=== PATIENT | female | born 1930 | race Caucasian/White ===

== ENCOUNTER 2016-12-26 14:13 | Emergency (ER) | payer MEDICARE ==
[2016-12-26 14:16] VITALS: BP 129/92; PULSE 85; RESP 16; TEMP 97.5; O2SAT 94
--- NOTE | 2016-12-26 15:43 | RADRPT ---
EXAM DATE/TIME: 12/26/2016 15:21 [facility] COMPARISON: No previous studies available for comparison. INDICATIONS : Short of breath, chest discomfort MEDICAL HISTORY : None. SURGICAL HISTORY : None. ENCOUNTER: Initial ACUITY: 1 day PAIN SCORE: 4/10 LOCATION: Bilateral chest FINDINGS: Frontal and lateral views of the chest demonstrate a normal-sized cardiac silhouette with a tortuous descending thoracic aorta. Background lung changes are suggestive of obstructive airways disease. No effusion, consolidation, or pneumothorax is identified. Bones and soft tissues demonstrate no acute f inding. CONCLUSION: No acute cardiopulmonary abnormality is identified. Background lung findings are suggestive of obstru ctive airways disease/emphysema. Leroy Marino MD on December 26, 2016 at 15:40 Board Certified Radiologist. This report was verified electronically.
[2016-12-26 15:45] LABS: HEMATOCRIT 41.8 % (35.0-46.0); MEAN CELL VOLUME 97.4 FL (80.0-100.0); MEAN CORPUSCULAR HEMOGLOBIN 33.4 PG (27.0-34.0); MEAN CORPUSCULAR HGB CONC 34.3 % (32.0-36.0); PLATELET COUNT 289 TH/MM3 (150-450); RED BLOOD COUNT 4.29 MIL/MM3 (4.00-5.30); RED CELL DISTRIBUTION WIDTH 12.7 % (11.6-17.2); WHITE BLOOD COUNT 6.6 TH/MM3 (4.0-11.0)
[2016-12-26 15:46] LABS: HEMO FLAGS AUTO DIFF
[2016-12-26 15:52] LABS: ANION GAP 7 MEQ/L (5-15); BICARBONATE 23.6 MEQ/L (21.0-32.0); BLOOD UREA NITROGEN 20 MG/DL (7-18); CHLORIDE 108 MEQ/L (98-107); GLOMERULAR FILTRATION RATE 64 ML/MIN (>89); MAGNESIUM 1.7 MG/DL (1.5-2.5); SODIUM (NA) 139 MEQ/L (136-145)
[2016-12-26 15:58] LABS: CREATINE KINASE 83 U/L (26-192)
[2016-12-26 16:11] LABS: MYELOCYTES 1 % (0-0); NEUTROPHIL # MANUAL DIFF 5.5 TH/MM3 (1.8-7.7); POLYS (SEG NEUTROPHILS) 83 % (16-70); WBC DIFF SAMPLE 100
[2016-12-26 16:15] LABS: PLATELET ESTIMATE SMEAR NORMAL (NORMAL); PLATELET MORPHOLOGY NORMAL (NORMAL); SCAN/DIFF FINAL DIFF MANUAL
[2016-12-26 18:54] VITALS: BP 169/77; PULSE 97; RESP 18; O2SAT 97
--- NOTE | 2016-12-26 20:01 | PD ---
HPI Chief Complaint: Respiratory Symptoms Time Seen by Provider: 19:02 Travel History International Travel<30 days: No Contact w/Intl Traveler<30days: No Traveled to known affect area: No History of Present Illness HPI 86-year-old female with recent diagnosis of CHF presents to the ED for evaluation of 7-10 day history of intermittent right eye pain, unassociated nausea and "white urine." The patient denies headache, blurred vision, dizziness, fever, chills, chest pain, palpitations, shortness of breath, cough, abdominal pain, changes in bowel habits, dysuria, back pain, lower extremity edema. She states that she was recently discharged from [facility]. She takes no daily medications. Her primary care is in [place]. She denies eye pain on presentation. She has an appointment with her cook short order tomorrow. Last eye exam in November. She uses oxygen at home at night. [facility] Past Medical History Medical History: Denies Significant Hx Tetanus Vaccination: < 5 Years Past Surgical History Hysterectomy: Yes (part) Social History Alcohol Use: No Tobacco Use: No Substance Use: No Allergies-Medications (Allergen,Severity, Reaction): Coded Allergies: No Known Allergies (Unverified , 12/26/16) Reported Meds & Prescriptions Reported Meds & Active Scripts Active No Active Prescriptions or Reported Medications Review of Systems Except as stated in HPI: all other systems reviewed are Neg Physical Exam Narrative GENERAL: Well-nourished, well-developed white female in no acute distress. SKIN: Focused skin assessment warm/dry. HEAD: Normocephalic. EYES: No scleral icterus. No injection or drainage. PERRLA. EOMI. FUNDUSCOPIC EXAM: The bilateral funduscopic exam appeared within normal limits without papilledema, A-V nicking or blood associated with the optic disc. INTRAOCULAR PRESSURE: OD: 88, 84 OS: deferred 2/2 patient's discomfort NECK: Supple, trachea midline. No JVD or lymphadenopathy. CARDIOVASCULAR: Regular rate and rhythm without murmurs, gallops, or rubs. RESPIRATORY: Breath sounds clear and equal bilaterally. No accessory muscle use. GASTROINTESTINAL: Abdomen soft, non-tender, nondistended. No Soto's sign. No palpable masses. Active bowel sounds. MUSCULOSKELETAL: No cyanosis, or edema. NEUROLOGICAL: Awake and alert. Cranial nerves II through XII intact. Motor and sensory grossly within normal limits. Five out of 5 muscle strength in all muscle groups. Normal speech. BACK: Nontender without obvious deformity. No CVA tenderness. Data Data Last Documented VS Vital Signs Date Time Temp Pulse Resp B/P (MAP) Pulse Ox O2 Delivery O2 Flow Rate FiO2 12/27/16 01:06 12/27/16 00:57 74 16 97 2.00 12/26/16 23:01 Nasal Cannula 12/26/16 14: 97.5 Orders Orders Electrocardiogram (12/26/16 14:31) Basic Metabolic Panel (Bmp) (12/26/16 14:31) B-Type Natriuretic Peptide (12/26/16 14:31) Ckmb (Isoenzyme) Profile (12/26/16 14:31) Complete Blood Count With Diff (12/26/16 14:31) Magnesium (Mg) (12/26/16 14:31) Prothrombin Time / Inr (Pt) (12/26/16 14:31) Act Partial Throm Time (Ptt) (12/26/16 14:31) Troponin I (12/26/16 14:31) Chest, Pa & Lat (12/26/16 14:31) Urinalysis - C+S If Indicated (12/26/16 14:31) Ecg Monitoring (12/26/16 20:14) Oximetry (12/26/16 20:14) Ct Brain W/O Iv Contrast(Rout) (12/26/16 21:13) Ct Facial Bones W Iv Contrast (12/26/16 ) Tylenol (Acetaminophen) (12/26/16 21:13) Proparacaine 0.5% Opth Soln (Alcaine 0.5 (12/26/16 21:15) Iv Access Insert/Monitor (12/26/16 21:21) Morphine Inj (Morphine Inj) (12/26/16 21:30) Iohexol 350 Inj (Omnipaque 350 Inj) (12/26/16 22:29) Metoclopramide Inj (Reglan Inj) (12/26/16 22:30) Diphenhydramine Inj (Benadryl Inj) (12/26/16 22:30) Morphine Inj (Morphine Inj) (12/26/16 22:45) Ketorolac Inj (Toradol Inj) (12/26/16 23:15) Morphine Inj (Morphine Inj) (12/27/16 00:30) Ed Discharge Order (12/27/16 00:33) Alprazolam (Xanax) (12/27/16 00:45) Labs Laboratory Tests Test 12/26/16 15:15 12/26/16 21:45 12/26/16 23:10 12/26/16 23:50 White Blood Count 6.6 TH/MM3 Red Blood Count 4.29 MIL/MM3 Hemoglobin 14.3 GM/DL Hematocrit 41.8 % Mean Corpuscular Volume 97.4 FL Mean Corpuscular Hemoglobin 33.4 PG Mean Corpuscular Hemoglobin Concent 34.3 % Red Cell Distribution Width 12.7 % Platelet Count 289 TH/MM3 Mean Platelet Volume 8.3 FL CBC Comment AUTO DIFF Differential Total Cells Counted 100 Neutrophils % (Manual) 83 % Lymphocytes % 14 % Monocytes % 2 % Neutrophils # (Manual) 5.5 TH/MM3 Myelocytes 1 % Differential Comment FINAL DIFF MANUAL Platelet Estimate NORMAL Platelet Morphology Comment NORMAL Blood Urea Nitrogen 20 MG/DL Creatinine 0.85 MG/DL Random Glucose 115 MG/DL Calcium Level 9.3 MG/DL Magnesium Level 1.7 MG/DL Sodium Level 139 MEQ/L Potassium Level 4.0 MEQ/L Chloride Level 108 MEQ/L Carbon Dioxide Level 23.6 MEQ/L Anion Gap 7 MEQ/L Estimat Glomerular Filtration Rate 64 ML/MIN Total Creatine Kinase 83 U/L Troponin I LESS THAN 0.02 NG/ML B-Type Natriuretic Peptide 111 PG/ML Acetaminophen Level LESS THAN 2.0 MCG/ML Prothrombin Time 11.4 SEC Prothromb Time International Ratio 1.0 RATIO Activated Partial Thromboplast Time 25.9 SEC Urine Color YELLOW Urine Turbidity CLEAR Urine pH 5.5 Urine Specific [place] 1.050 Urine Protein TRACE mg/dL Urine Glucose (UA) NEG mg/dL Urine Ketones TRACE mg/dL Urine Occult Blood NEG Urine Nitrite NEG Urine Bilirubin NEG Urine Urobilinogen LESS THAN 2.0 MG/DL Urine Leukocyte Esterase NEG Urine RBC 1 /hpf Urine WBC 3 /hpf Urine Squamous Epithelial Cells 2 /hpf Urine Bacteria RARE /hpf Urine Hyaline Casts 3 /lpf Urine Mucus FEW /lpf Microscopic Urinalysis Comment CULT NOT INDICATED MDM Medical Decision Making Medical Screen Exam Complete: Yes Emergency Medical Condition: Yes Differential Diagnosis UTI versus CHF exacerbation versus PNA versus ocular migraine versus cluster headache versus other Narrative Course 86-year-old female with recent diagnosis of CHF on oxygen when necessary at night presents to the ED for evaluation of 7-10 day history of intermittent right eye pain, unassociated nausea and "white urine." The patient denies headache, blurred vision, dizziness, fever, chills, chest pain, palpitations, shortness of breath, cough, abdominal pain, changes in bowel habits, dysuria, back pain, lower extremity edema. She takes no daily medications. PCP in [place]. She denies eye pain on presentation. She has an appointment with her cook short order tomorrow. Last eye exam in November. Vitals reviewed. Patient' s afebrile, hypertensive on presentation. Physical exam reveals a pleasant white female in no acute distress. PERRLA. EOMI. Funduscopic exam unremarkable. IOP OD 88, 84, measured on 2 different James-Pen's. I doubt the validity of these readings. Patient was very anxious, moving the eye constantly , blinking repeatedly. I deferred pressures in the left eye secondary to these difficulties. No focal neuro deficits. Chest CTAB. Abdomen soft, nontender. No CVA tenderness. No lower extremity edema. Workup was initiated in the triage area. CBC: No leukocytosis or anemia CMP: No concerning abnormalities CXR: Background findings suspicious for COPD, no acute findings per radiology read. EKG rate 63, ectopic atrial rhythm. SC interval 154, QRS 80, QTC 380 ms. Normal axis. No acute ST changes. Reviewed by Dr. Gibbs. Troponin: Negative 1 BNP 111 UA: During the course of evaluation the patient began to complain of intense pain behind the right eye. I reevaluated the patient and no tearing was noted. Visual acuity 20/30 OD, 20/40 OS. Patient was administered 2 mg morphine IV. On return from CT she complains of continued pains. She was ordered 2 additional milligrams of morphine, IV Reglan, IV Benadryl, IV Toradol. CT brain: Normal per radiology read CT facial bones: Normal for radiology read. On recheck the patient is sleeping. She reports improvement of her headache. UA is pending. Patient is signed out to Dr. Miguel at end of shift. Please see her note for disposition. Diagnosis Primary Impression: Retrobulbar headache Referrals: Commercial Front Load Driver Patient Instructions: Acute Headache (ED), General Instructions Additional Instructions: Rest, hydrate. Return to normal, gentle activities as tolerated. Follow-up with the cook short order as planned. Return to the ED for worsening symptoms or any urgent or emergent medical condition. Scripts No Active Prescriptions or Reported Meds Disposition: 01 DISCHARGE HOME Condition: Stable Erna Cabrales Dec 26, 2016 20:01
[2016-12-26] MEDS ORDERED: PROPARACAINE HCL 0.5% OPHT SOLN 15 ML BTL EACH EYE ONE (21:15)
[2016-12-26 21:24] VITALS: BP 133/89; PULSE 95; RESP 18; O2SAT 95
--- NOTE | 2016-12-26 21:29 | EKG ---
Date Performed: 12/26/2016 Time Performed: 16:52:17 PTAGE: 86 years EKG: Sinus rhythm SUSPEC LEAD REVERSAL NO PREVIOUS TRACING DOCTOR: Tod Schilling Interpretating Date/Time 12/26/2016 21:28:35
[2016-12-26] MEDS ORDERED: MORPHINE SULFATE 2 MG/ML INJ IV PUSH ONE ×2 (21:30→22:45)
[2016-12-26] MEDS ORDERED: IOHEXOL 350 MG/ML 10 ML VIAL (for RAD DIAG) IVCONTRAST ONE (22:29)
[2016-12-26] MEDS ORDERED: diphenhydrAMINE HCL 50 MG/ML VIAL IV PUSH ONE (22:30)
[2016-12-26] MEDS ORDERED: METOCLOPRAMIDE HCL 10 MG/2 ML VIAL IV PUSH ONE (22:30)
--- NOTE | 2016-12-26 22:40 | RADRPT ---
EXAM DATE/TIME: 12/26/2016 22:09 [facility] COMPARISON: No previous studies available for comparison. INDICATIONS : Cephalgia. RADIATION DOSE: 34.19 CTDIvol (mGy) MEDICAL HISTORY : None SURGICAL HISTORY : None. ENCOUNTER: Initial ACUITY: 3 weeks PAIN SCALE: 5/10 LOCATION: cranial TECHNIQUE: Multiple contiguous axial images were obtained of the head. Using automated exposure control and adj ustment of the mA and/or kV according to patient size, radiation dose was kept as low as reasonably a chievable to obtain optimal diagnostic quality images. DICOM format image data is available electro nically for review and comparison. FINDINGS: CEREBRUM: The ventricles are normal for age. No evidence of midline shift, mass lesion, hemorrhage or acute in farction. No extra-axial fluid collections are seen. POSTERIOR FOSSA: The cerebellum and brainstem are intact. The 4th ventricle is midline. The cerebellopontine angle i s unremarkable. EXTRACRANIAL: The visualized portion of the orbits is intact. SKULL: The calvaria is intact. No evidence of skull fracture. CONCLUSION: Normal examination. Evangelista Fink MD on December 26, 2016 at 22:38 Board Certified Radiologist. This report was verified electronically.
--- NOTE | 2016-12-26 22:43 | RADRPT ---
EXAM DATE/TIME: 12/26/2016 22:09 [facility] COMPARISON: No previous studies available for comparison. INDICATIONS : Right eye pain, no known injury. IV CONTRAST: 71 cc Omnipaque 350 (iohexol) IV RADIATION DOSE: 42.09 CTDIvol (mGy) MEDICAL HISTORY : None SURGICAL HISTORY : None. ENCOUNTER: Initial ACUITY: 3 weeks PAIN SCALE: 6/10 LOCATION: Right orbit. TECHNIQUE: Volumetric scanning of the facial bones was performed. Using automated exposure control and adjustme nt of the mA and/or kV according to patient size, radiation dose was kept as low as reasonably achiev able to obtain optimal diagnostic quality images. DICOM format image data is available electronicall y for review and comparison. FINDINGS: ORBITS: The orbital and infraorbital osseous structures are intact. The retroconal structures have a normal configuration. No radiopaque foreign bodies are seen. NASAL BONE: The nasal bone and maxillary spine are intact ZYGOMATIC ARCHES: Symmetric without evidence of fracture. SINUSES: The maxillary, ethmoid and frontal sinuses are intact. No air-fluid levels seen. NASAL CAVITY: The nasal septum is intact and midline. The lacrimal ducts are intact. SOFT TISSUES: No radiopaque foreign bodies seen. No soft-tissue swelling is seen. INTRACRANIAL: No intracranial air seen. CRIBIFORM PLATE: Grossly intact. CONCLUSION: Normal examination. Evangelista Fink MD on December 26, 2016 at 22:41 Board Certified Radiologist. This report was verified electronically.
[2016-12-26 23:00] VITALS: RESP 12; O2SAT 86
[2016-12-26 23:01] VITALS: O2SAT 97
[2016-12-26] MEDS ORDERED: KETOROLAC TROMETHAMINE 30 MG/ML (IVP) VIAL IV PUSH ONE (23:15)
[2016-12-26 23:43] LABS: APTT (PATIENT) 25.9 SEC (24.3-30.1); PROTHROMBIN TIME - PATIENT 11.4 SEC (9.8-11.6)
[2016-12-27 00:16] LABS: BACTERIA, URINE RARE /hpf; BLOOD, URINE NEG (NEG); COMMENT (UR) CULT NOT INDICATED; CULTURE IF INDICATED CULT NOT INDICATED; GLUCOSE,URINE NEG (NEG); HYALINE CAST, URINE 3 /lpf (RARE); KETONE, URINE TRACE mg/dL (NEG); MUCUS URINE FEW /lpf (OCC); NITRITE,URINE NEG (NEG); PH, URINE 5.5 (5.0-8.5); SQUAMOUS EPITHELIAL CELL URINE 2 /hpf (0-5); URINE COLOR YELLOW (YELLW/STRAW)
[2016-12-27] MEDS ORDERED: MORPHINE SULFATE 2 MG/ML INJ IV PUSH ONE (00:30)
--- NOTE | 2016-12-27 00:37 | PD ---
Physical Exam Date Seen by Provider: Dec 27, 2016 Time Seen by Provider: 00:34 Narrative 86-year-old female came to the emergency room with history of intense right eye pain. There is no vision loss. Patient was seen by my PA. She describes the pain as a pressure sensation behind her eye. Patient also had some urinary symptoms. She had a workup in the form of blood test, chest x-ray, head CT and maxillofacial CT. She was medicated for pain while awaiting the test results. My PA left as she was done with her shift and I'm following up on the case right now. All her test results are within acceptable limits. No abnormalities found as the cause of her pain. I went and saw the patient and spoke with her. She says her pain is better now. Her daughter is very concerned that the pain keeps coming back every night and she seems to be in agony. I explained to them that the test results being negative there is no reason to admit her in the hospital. States she should go home and follow up with priming mixture carrier. Patient says that she has her own priming mixture carrier Dr. Rondon. She will try to contact him in the morning and get an appointment. I emphasized that she should be seen as soon as possible. Patient understands. She is comfortable going home. Her daughter seemed hesitant but patient wants to go home and I am perfectly fine with that. She wants a dose of pain medicine before going home. I ordered some morphine. Data Data Last Documented VS Orders Orders Electrocardiogram (12/26/16 14:31) Basic Metabolic Panel (Bmp) (12/26/16 14:31) B-Type Natriuretic Peptide (12/26/16 14:31) Ckmb (Isoenzyme) Profile (12/26/16 14:31) Complete Blood Count With Diff (12/26/16 14:31) Magnesium (Mg) (12/26/16 14:31) Prothrombin Time / Inr (Pt) (12/26/16 14:31) Act Partial Throm Time (Ptt) (12/26/16 14:31) Troponin I (12/26/16 14:31) Chest, Pa & Lat (12/26/16 14:31) Urinalysis - C+S If Indicated (12/26/16 14:31) Ecg Monitoring (12/26/16 20:14) Oximetry (12/26/16 20:14) Ct Brain W/O Iv Contrast(Rout) (12/26/16 21:13) Ct Facial Bones W Iv Contrast (12/26/16 ) Tylenol (Acetaminophen) (12/26/16 21:13) Proparacaine 0.5% Opth Soln (Alcaine 0.5 (12/26/16 21:15) Iv Access Insert/Monitor (12/26/16 21:21) Morphine Inj (Morphine Inj) (12/26/16 21:30) Iohexol 350 Inj (Omnipaque 350 Inj) (12/26/16 22:29) Metoclopramide Inj (Reglan Inj) (12/26/16 22:30) Diphenhydramine Inj (Benadryl Inj) (12/26/16 22:30) Morphine Inj (Morphine Inj) (12/26/16 22:45) Ketorolac Inj (Toradol Inj) (12/26/16 23:15) Morphine Inj (Morphine Inj) (12/27/16 00:30) Ed Discharge Order (12/27/16 00:33) Alprazolam (Xanax) (12/27/16 00:45) Labs Laboratory Tests Test 12/26/16 15:15 12/26/16 21:45 12/26/16 23:10 12/26/16 23:50 White Blood Count 6.6 TH/MM3 Red Blood Count 4.29 MIL/MM3 Hemoglobin 14.3 GM/DL Hematocrit 41.8 % Mean Corpuscular Volume 97.4 FL Mean Corpuscular Hemoglobin 33.4 PG Mean Corpuscular Hemoglobin Concent 34.3 % Red Cell Distribution Width 12.7 % Platelet Count 289 TH/MM3 Mean Platelet Volume 8.3 FL CBC Comment AUTO DIFF Differential Total Cells Counted 100 Neutrophils % (Manual) 83 % Lymphocytes % 14 % Monocytes % 2 % Neutrophils # (Manual) 5.5 TH/MM3 Myelocytes 1 % Differential Comment FINAL DIFF MANUAL Platelet Estimate NORMAL Platelet Morphology Comment NORMAL Blood Urea Nitrogen 20 MG/DL Creatinine 0.85 MG/DL Random Glucose 115 MG/DL Calcium Level 9.3 MG/DL Magnesium Level 1.7 MG/DL Sodium Level 139 MEQ/L Potassium Level 4.0 MEQ/L Chloride Level 108 MEQ/L Carbon Dioxide Level 23.6 MEQ/L Anion Gap 7 MEQ/L Estimat Glomerular Filtration Rate 64 ML/MIN Total Creatine Kinase 83 U/L Troponin I LESS THAN 0.02 NG/ML B-Type Natriuretic Peptide 111 PG/ML Acetaminophen Level LESS THAN 2.0 MCG/ML Prothrombin Time 11.4 SEC Prothromb Time International Ratio 1.0 RATIO Activated Partial Thromboplast Time 25.9 SEC Urine Color YELLOW Urine Turbidity CLEAR Urine pH 5.5 Urine Specific [place] 1.050 Urine Protein TRACE mg/dL Urine Glucose (UA) NEG mg/dL Urine Ketones TRACE mg/dL Urine Occult Blood NEG Urine Nitrite NEG Urine Bilirubin NEG Urine Urobilinogen LESS THAN 2.0 MG/DL Urine Leukocyte Esterase NEG Urine RBC 1 /hpf Urine WBC 3 /hpf Urine Squamous Epithelial Cells 2 /hpf Urine Bacteria RARE /hpf Urine Hyaline Casts 3 /lpf Urine Mucus FEW /lpf Microscopic Urinalysis Comment CULT NOT INDICATED MDM Supervised Visit with CRISTINA: Yes Diagnosis Primary Impression: Retrobulbar headache Referrals: Susana Mortensen MD 1 day Crew Attendant Patient Instructions: General Instructions, Acute Headache (ED) Additional Instruction: Rest, hydrate. Return to normal, gentle activities as tolerated. Follow-up with the priming mixture carrier as planned. Return to the ED for worsening symptoms or any urgent or emergent medical condition. Scripts No Active Prescriptions or Reported Meds Disposition: 01 DISCHARGE HOME Condition: Stable Jenna Salazar MD Dec 27, 2016 00:37
[2016-12-27] MEDS ORDERED: ALPRAZolam 0.5 MG TAB PO ONE (00:45)
[2016-12-27 00:57] VITALS: BP 122/88
== END 2016-12-27 01:10 | disposition home or self-care (01) ==
LOC: NEPC 14:13
DX: G44.89 Other headache syndrome (principal); I50.9 Heart failure, unspecified; Z99.81 Dependence on supplemental oxygen
CPT/HCPCS: 70450; 70487; 71020; 80048; 80307; 81001; 82550; 83735; 83880; 84484; 85007; 85027; 85610; 85730; 93005; 96374; 96375; 96376; 99285; J1200; J1885; J2270; J2765; Q9967